=== PATIENT | female | born 1965 | race Caucasian/White ===

== ENCOUNTER 2023-11-19 09:33 | Emergency (ER) | payer OTHER ==
[2023-11-19] MEDS ORDERED: Lidocaine 1% 5 ML VIAL ONE (09:57)
[2023-11-19] MEDS: Diphtheria,Pertussis(Acell),Tetanus Vaccine 0.5 ML Syringe IM ONE (10:20)
[2023-11-19] MEDS: Lidocaine 1% 5 ML VIAL INJECT ONE (11:00)
[2023-11-19] MEDS: Bacitracin Oint 1 GM U/D Packet TOP ONE (11:35)
== END 2023-11-19 11:37 | disposition home or self-care (01) ==
LOC: DL.ED 09:33
DX: S61.412A Laceration without foreign body of left hand, initial encounter (principal); Z23 Encounter for immunization; Z86.16 Personal history of COVID-19; Z88.0 Allergy status to penicillin; Z88.4 Allergy status to anesthetic agent; W26.0XXA Contact with knife, initial encounter
CPT/HCPCS: 12001; 73120; 90471; 90715; 99283; A9270; J3490